=== PATIENT | male | born 1975 | race Caucasian/White ===

== ENCOUNTER 2018-07-12 05:37 | Emergency (ER) | payer SELFPAY ==
[2018-07-12 06:24] LABS: Basophils % (Auto) 0.3 % (0.0-1.8); Eosinophils % (Auto) 0.1 % (0.0-4.3); Hematocrit 43.9 % (35.5-45.6); Hemoglobin 15.4 gm/dl (11.8-15.2); Lymphocytes % (Auto) 10.8 % (13.4-35.0); Mean Corpuscular HGB Conc 35 % (32-34); Mean Corpuscular Hemoglobin 32 pg (28-32); Mean Corpuscular Volume 90 fl (84-94); Monocytes # (Auto) 0.8 K/mm3 (0.0-0.8); Monocytes % (Auto) 8.1 % (0.0-7.3); Platelet Count 221 K/mm3 (140-440); Red Blood Count 4.86 M/mm3 (3.65-5.03); Red Cell Distribution Width 12.3 % (13.2-15.2)
[2018-07-12 07:37] LABS: BUN/Creatinine Ratio 14; Blood Urea Nitrogen 7 mg/dL (9-20); Calcium 9.7 mg/dL (8.4-10.2); Hemolysis Index 9
[2018-07-12 10:36] LABS: Benzodiazepines Screen,Urine PRESUMPTIVE NEGATIVE; Cannabinoid Screen,Urine PRESUMPTIVE NEGATIVE; Cocaine Screen,Urine PRESUMPTIVE NEGATIVE; Methadone Screen,Urine PRESUMPTIVE NEGATIVE; Opiate Screen,Urine PRESUMPTIVE NEGATIVE
[2018-07-12] MEDS ORDERED: NACL 0.9% 1000 ML 1,000 ML IV ONE (10:46)
[2018-07-12] MEDS ORDERED: HumuLIN R IV ONE (10:46)
[2018-07-12] MEDS ORDERED: TORADOL IV ONE (11:01)
[2018-07-12 11:02] LABS: Amphetamine Screen,Urine PRESUMPTIVE POSITIVE
[2018-07-12] MEDS ORDERED: ZOFRAN IV ONE (11:03)
[2018-07-12 11:04] LABS: Bilirubin,Urine NEG (Negative); Blood,Urine NEG (Negative); Color,Urine Straw (Yellow); Protein,Urine <15 mg/dL mg/dL (Negative); Urobilinogen,Urine < 2.0 mg/dL (<2.0)
--- NOTE | 2018-07-12 11:23 | Emergency Department Report ---
ED General Adult HPI - General Chief complaint: Chest Pain Stated complaint: HEART PROBLEM/CHEST PAIN Time Seen by Provider: 07/12/18 10:29 Source: patient Mode of arrival: Ambulatory Limitations: Language Barrier (ortho/prosthetic aide) - History of Present Illness Initial comments: 43-year-old male with a history of daily alcohol use presents to the hospital with multiple complaints since yesterday. Patient states he has had intermittent headache to the top of his head pain is currently 7/10 in intensity. He denies any neck pain, focal weakness or numbness. Patient also complains of nausea since episodes of vomiting and about 6 episodes of diarrhea since 2am. He also complains of an episode of left-sided chest pain described as tightness this a.m. that has since resolved. He denies shortness of breath. He smokes 1 cigarette a day. Denies history of CAD. He admits to drinking 20 beers daily but denies history of alcohol withdraw tremors or seizures. Severity scale (0 -10): 4 - Related Data Previous Rx's Medication Instructions Recorded Last Taken Type Ibuprofen [Motrin] 800 mg PO Q8HR PRN #30 tablet 07/12/18 Unknown Rx Ondansetron [Zofran Odt] 4 mg PO Q8HR #30 tab.rapdis 07/12/18 Unknown Rx metFORMIN [Glucophage] 500 mg PO BID #60 tablet 07/12/18 Unknown Rx Allergies Allergy/AdvReac Type Severity Reaction Status Date / Time No Known Allergies Allergy Unverified 07/12/18 05:56 ED Review of Systems ROS: Stated complaint: HEART PROBLEM/CHEST PAIN Other details as noted in HPI Comment: All other systems reviewed and negative ED Past Medical Hx - Past Medical History Previous Medical History?: No - Surgical History Past Surgical History?: No - Social History Smoking Status: Never Smoker Substance Use Type: Alcohol, Other - Medications Home Medications: Home Medications Medication Instructions Recorded Confirmed Last Taken Type Ibuprofen [Motrin] 800 mg PO Q8HR PRN #30 tablet 07/12/18 Unknown Rx Ondansetron [Zofran Odt] 4 mg PO Q8HR #30 tab.rapdis 07/12/18 Unknown Rx metFORMIN [Glucophage] 500 mg PO BID #60 tablet 07/12/18 Unknown Rx ED Physical Exam - General Limitations: Language Barrier - Other Other exam information: General: No limitations, patient is alert in no acute distress Head exam: Atraumatic, normocephalic Eyes exam: Normal appearance, pupils equal reactive to light, extraocular movements intact ENT: Moist mucous membrane, normal oropharynx Neck exam: Normal inspection, full range of motion, no meningismus nontender Respiratory exam: Clear to auscultation bilateral, no wheezes, rales, crackles Cardiovascular: Normal rate and rhythm, normal heart sounds Abdomen: Soft, nondistended, and nontender, with normal bowel sounds, no rebound, or guarding Extremity: Full range of motion normal inspection no deformity Back: Normal Inspection, full range of motion, no tenderness Neurologic: Alert, oriented x3, cranial nerves intact, no motor or sensory deficit Psychiatric: normal affect, normal mood Skin: Warm, dry, intact ED Course Vital Signs 07/12/18 07/12/18 07/12/18 05:54 10:10 10:36 Temperature 98.6 F Pulse Rate 104 H Respiratory 18 Rate Blood Pressure 146/89 147/92 O2 Sat by Pulse 97 97 Oximetry 07/12/18 07/12/18 07/12/18 10:45 11:00 11:15 Temperature Pulse Rate 97 H 98 H 94 H Respiratory 21 20 20 Rate Blood Pressure 149/91 155/92 142/86 O2 Sat by Pulse 98 96 Oximetry 07/12/18 07/12/18 07/12/18 11:30 11:45 12:00 Temperature Pulse Rate 91 H 89 93 H Respiratory 12 18 16 Rate Blood Pressure 149/85 O2 Sat by Pulse 99 95 95 Oximetry 07/12/18 12:15 Temperature Pulse Rate 85 Respiratory 19 Rate Blood Pressure 132/79 O2 Sat by Pulse 94 Oximetry ED Medical Decision Making - Lab Data Result diagrams: 07/12/18 05:59 07/12/18 05:59 Lab Results 07/12/18 07/12/18 07/12/18 Range/Units 05:59 05:59 08:28 WBC 9.5 (4.5-11.0) K/mm3 RBC 4.86 (3.65-5.03) M/mm3 Hgb 15.4 H (11.8-15.2) gm/dl Hct 43.9 (35.5-45.6) % MCV 90 (84-94) fl MCH 32 (28-32) pg MCHC 35 H (32-34) % RDW 12.3 L (13.2-15.2) % Plt Count 221 (140-440) K/mm3 Lymph % (Auto) 10.8 L (13.4-35.0) % [place] % (Auto) 8.1 H (0.0-7.3) % Eos % (Auto) 0.1 (0.0-4.3) % Baso % (Auto) 0.3 (0.0-1.8) % Lymph # 1.0 L (1.2-5.4) K/mm3 [place] # 0.8 (0.0-0.8) K/mm3 Eos # 0.0 (0.0-0.4) K/mm3 Baso # 0.0 (0.0-0.1) K/mm3 Seg Neutrophils % 80.7 H (40.0-70.0) % Seg Neutrophils # 7.7 (1.8-7.7) K/mm3 Sodium 128 L (137-145) mmol/L Potassium 4.6 (3.6-5.0) mmol/L Chloride 86.2 L (98-107) mmol/L Carbon Dioxide 24 (22-30) mmol/L Anion Gap 22 mmol/L BUN 7 L (9-20) mg/dL Creatinine 0.5 L (0.8-1.5) mg/dL Estimated GFR > 60 ml/min BUN/Creatinine Ratio 14 % Glucose 357 H (75-100) mg/dL POC Glucose (70-105) Hemoglobin A1c (4-6) % Calcium 9.7 (8.4-10.2) mg/dL Total Creatine Kinase (55-170) units/L Troponin T < 0.010 < 0.010 (0.00-0.029) ng/mL Urine Color (Yellow) Urine Turbidity (Clear) Urine pH (5.0-7.0) Ur Specific [place] (1.003-1.030) Urine Protein (Negative) mg/dL Urine Glucose (UA) (Negative) mg/dL Urine Ketones (Negative) mg/dL Urine Blood (Negative) Urine Nitrite (Negative) Urine Bilirubin (Negative) Urine Urobilinogen (<2.0) mg/dL Ur Leukocyte Esterase (Negative) Urine WBC (Auto) (0.0-6.0) /HPF Urine RBC (Auto) (0.0-6.0) /HPF Urine Opiates Screen Urine Methadone Screen Ur Barbiturates Screen Ur Phencyclidine Scrn Ur Amphetamines Screen U Benzodiazepines Scrn Urine Cocaine Screen U Marijuana (THC) Screen Drugs of Abuse Note 07/12/18 07/12/18 07/12/18 Range/Units 10:08 10:41 10:47 WBC (4.5-11.0) K/mm3 RBC (3.65-5.03) M/mm3 Hgb (11.8-15.2) gm/dl Hct (35.5-45.6) % MCV (84-94) fl MCH (28-32) pg MCHC (32-34) % RDW (13.2-15.2) % Plt Count (140-440) K/mm3 Lymph % (Auto) (13.4-35.0) % [place] % (Auto) (0.0-7.3) % Eos % (Auto) (0.0-4.3) % Baso % (Auto) (0.0-1.8) % Lymph # (1.2-5.4) K/mm3 [place] # (0.0-0.8) K/mm3 Eos # (0.0-0.4) K/mm3 Baso # (0.0-0.1) K/mm3 Seg Neutrophils % (40.0-70.0) % Seg Neutrophils # (1.8-7.7) K/mm3 Sodium (137-145) mmol/L Potassium (3.6-5.0) mmol/L Chloride (98-107) mmol/L Carbon Dioxide (22-30) mmol/L Anion Gap mmol/L BUN (9-20) mg/dL Creatinine (0.8-1.5) mg/dL Estimated GFR ml/min BUN/Creatinine Ratio % Glucose (75-100) mg/dL POC Glucose 259 H (70-105) Hemoglobin A1c (4-6) % Calcium (8.4-10.2) mg/dL Total Creatine Kinase (55-170) units/L Troponin T (0.00-0.029) ng/mL Urine Color Straw (Yellow) Urine Turbidity Clear (Clear) Urine pH 6.0 (5.0-7.0) Ur Specific [place] 1.020 (1.003-1.030) Urine Protein <15 mg/dl (Negative) mg/dL Urine Glucose (UA) >=500 (Negative) mg/dL Urine Ketones 20 (Negative) mg/dL Urine Blood Neg (Negative) Urine Nitrite Neg (Negative) Urine Bilirubin Neg (Negative) Urine Urobilinogen < 2.0 (<2.0) mg/dL Ur Leukocyte Esterase Neg (Negative) Urine WBC (Auto) 1.0 (0.0-6.0) /HPF Urine RBC (Auto) 2.0 (0.0-6.0) /HPF Urine Opiates Screen Presumptive negative Urine Methadone Screen Presumptive negative Ur Barbiturates Screen Presumptive negative Ur Phencyclidine Scrn Presumptive negative Ur Amphetamines Screen Presumptive positive U Benzodiazepines Scrn Presumptive negative Urine Cocaine Screen Presumptive negative U Marijuana (THC) Screen Presumptive negative Drugs of Abuse Note Disclamer 07/12/18 07/12/18 07/12/18 Range/Units 11:08 11:27 11:28 WBC (4.5-11.0) K/mm3 RBC (3.65-5.03) M/mm3 Hgb (11.8-15.2) gm/dl Hct (35.5-45.6) % MCV (84-94) fl MCH (28-32) pg MCHC (32-34) % RDW (13.2-15.2) % Plt Count (140-440) K/mm3 Lymph % (Auto) (13.4-35.0) % [place] % (Auto) (0.0-7.3) % Eos % (Auto) (0.0-4.3) % Baso % (Auto) (0.0-1.8) % Lymph # (1.2-5.4) K/mm3 [place] # (0.0-0.8) K/mm3 Eos # (0.0-0.4) K/mm3 Baso # (0.0-0.1) K/mm3 Seg Neutrophils % (40.0-70.0) % Seg Neutrophils # (1.8-7.7) K/mm3 Sodium (137-145) mmol/L Potassium (3.6-5.0) mmol/L Chloride (98-107) mmol/L Carbon Dioxide (22-30) mmol/L Anion Gap mmol/L BUN (9-20) mg/dL Creatinine (0.8-1.5) mg/dL Estimated GFR ml/min BUN/Creatinine Ratio % Glucose (75-100) mg/dL POC Glucose (70-105) Hemoglobin A1c 11.3 H (4-6) % Calcium (8.4-10.2) mg/dL Total Creatine Kinase 371 H (55-170) units/L Troponin T < 0.010 (0.00-0.029) ng/mL Urine Color (Yellow) Urine Turbidity (Clear) Urine pH (5.0-7.0) Ur Specific [place] (1.003-1.030) Urine Protein (Negative) mg/dL Urine Glucose (UA) (Negative) mg/dL Urine Ketones (Negative) mg/dL Urine Blood (Negative) Urine Nitrite (Negative) Urine Bilirubin (Negative) Urine Urobilinogen (<2.0) mg/dL Ur Leukocyte Esterase (Negative) Urine WBC (Auto) (0.0-6.0) /HPF Urine RBC (Auto) (0.0-6.0) /HPF Urine Opiates Screen Urine Methadone Screen Ur Barbiturates Screen Ur Phencyclidine Scrn Ur Amphetamines Screen U Benzodiazepines Scrn Urine Cocaine Screen U Marijuana (THC) Screen Drugs of Abuse Note 07/12/18 Range/Units 12:57 WBC (4.5-11.0) K/mm3 RBC (3.65-5.03) M/mm3 Hgb (11.8-15.2) gm/dl Hct (35.5-45.6) % MCV (84-94) fl MCH (28-32) pg MCHC (32-34) % RDW (13.2-15.2) % Plt Count (140-440) K/mm3 Lymph % (Auto) (13.4-35.0) % [place] % (Auto) (0.0-7.3) % Eos % (Auto) (0.0-4.3) % Baso % (Auto) (0.0-1.8) % Lymph # (1.2-5.4) K/mm3 [place] # (0.0-0.8) K/mm3 Eos # (0.0-0.4) K/mm3 Baso # (0.0-0.1) K/mm3 Seg Neutrophils % (40.0-70.0) % Seg Neutrophils # (1.8-7.7) K/mm3 Sodium (137-145) mmol/L Potassium (3.6-5.0) mmol/L Chloride (98-107) mmol/L Carbon Dioxide (22-30) mmol/L Anion Gap mmol/L BUN (9-20) mg/dL Creatinine (0.8-1.5) mg/dL Estimated GFR ml/min BUN/Creatinine Ratio % Glucose (75-100) mg/dL POC Glucose 191 H (70-105) Hemoglobin A1c (4-6) % Calcium (8.4-10.2) mg/dL Total Creatine Kinase (55-170) units/L Troponin T (0.00-0.029) ng/mL Urine Color (Yellow) Urine Turbidity (Clear) Urine pH (5.0-7.0) Ur Specific [place] (1.003-1.030) Urine Protein (Negative) mg/dL Urine Glucose (UA) (Negative) mg/dL Urine Ketones (Negative) mg/dL Urine Blood (Negative) Urine Nitrite (Negative) Urine Bilirubin (Negative) Urine Urobilinogen (<2.0) mg/dL Ur Leukocyte Esterase (Negative) Urine WBC (Auto) (0.0-6.0) /HPF Urine RBC (Auto) (0.0-6.0) /HPF Urine Opiates Screen Urine Methadone Screen Ur Barbiturates Screen Ur Phencyclidine Scrn Ur Amphetamines Screen U Benzodiazepines Scrn Urine Cocaine Screen U Marijuana (THC) Screen Drugs of Abuse Note - EKG Data -: EKG Interpreted by Me EKG shows normal: sinus rhythm, axis (qrs 21), QRS complexes (qrsd 101), ST-T waves (no stemi/t inv) Rate: tachycardia (1141) - EKG Data When compared to previous EKG there are: previous EKG unavailable 07/12/18 13:14 repeat ekg NSR rate 87, qrs axis -14m qrsd 107 no stemi - Medical Decision Making + new onset diabetes elevated [id number] improved glucose with ns and insulin in ED cp no pain in ed trop neg x 3 ekg sinus without ischemia amphetamine + UDS ck normal possible cause of initial tachycardia coupled with increase urination with hyperglycmeia when questioned pt admits to takes drugs 3 days ago for the first time while at a birthday constitution party but did not know what type of drug it was. He deneis chronic use. butts ? due to dehydation improved with toradol nonfocal n/v/d possible gastroenteritis possible due to amphetamine use no fever nontender abd no leukocytosis - Differential Diagnosis diabetes, PR, unstable angina, gastroenteritis Critical Care Time: No Critical care attestation.: If time is entered above; I have spent that time in minutes in the direct care of this critically ill patient, excluding procedure time. ED Disposition Clinical Impression: Diabetes mellitus, new onset, Chest pain, Amphetamine abuse, Gastroenteritis Disposition: TO HOME OR SELFCARE Is pt being admited?: No Does the pt Need Aspirin: No Condition: Stable Instructions: Diabetes Mellitus Type 2 in Adults (ED), Chest Pain (ED), Methamphetamine Abuse (ED), Gastroenteritis (ED) Additional Instructions: Take the medication as prescribed. It is very important that you follow up with the primary care doctor for further diabetic teaching including how to check yoru sugar, diabetic diet, and medication adjustment. Your blood pressure was borderline high in the ER after receiving IV fluids. Continue to monitor your blood pressure at home or at a drug store and follow up with a primary care doctor for further management. [place] la medicacin segn lo prescrito. Es muy importante que shaneka un seguimiento con el mdico de atencin primaria para ms enseanza sobre la diabetes, que incluya customer support coordinator controlar el azcar, la dieta para diabticos y el ajuste de los medicamentos. Bright presin arterial estaba en el lmite alto en la bipin de emergencias despus de recibir lquidos por va intravenosa. Contine controlando bright presin arterial en el hogar o en aylin farmacia y shaneka un seguimiento con un mdico de atencin primaria para un manejo posterior. Prescriptions: Ibuprofen [Motrin] 800 mg PO Q8HR PRN #30 tablet PRN Reason: Pain , Severe (7-10) metFORMIN [Glucophage] 500 mg PO BID #60 tablet Ondansetron [Zofran Odt] 4 mg PO Q8HR #30 tab.rapdis Referrals: PRIMARY CARE, [Primary Care Provider] - 3-5 Days [facility] [Provider Group] - 3-5 Days [facility] [Outside] - 3-5 Days Time of Disposition: 13:25 Print Language: CROATIAN
[2018-07-12 13:36] VITALS: BP 145/90
== END 2018-07-12 13:39 | disposition home or self-care (01) ==
LOC: ED 05:37
DX: E11.9 Type 2 diabetes mellitus without complications (principal); R07.89 Other chest pain; K52.9 Noninfective gastroenteritis and colitis, unspecified; F15.10 Other stimulant abuse, uncomplicated
CPT/HCPCS: 36415; 80048; 80307; 81001; 82550; 82962; 83036; 84484; 85025; 93005; 93010; 96361; 96374; 96375; 99284; J1885; J2405; J7030; J1815